=== PATIENT | female | born 1980 | race Caucasian/White ===

== ENCOUNTER 2018-10-11 23:00 | Inpatient (IN) ==
[2018-10-11] MEDS ORDERED: OXYTOCIN 30 UNITS/500 ML BAG IV PRN (23:38)
--- NOTE | 2018-10-11 23:46 | History & Physical Report ---
Date of Service October 11, 2018 Assessment & Plan (1) Uterine contractions at greater than 20 weeks of gestation: 38 yo at 39 wks, presenting with ctxs, in labor, GBS negative VSS Afebrile FHR reassuring Plan to admit, monitor, labs, epidural for pain when she desires Anticipate History of Present Illness Chief Complaint: contractions Primary Care Provider: NO PCP Patient is a 38 yo at 39 wks, feeling ctxs for the last 4 hours, getting closer and more painful No LOF/VB +FM She denies medical problems Problems for this 1) AMA 2) h/o macrosomia, 11 lb baby, in 2014, no complications 3) Rh negative 4) Class II Obesity This baby's EFW was 8 lb 7 oz on 10/06 Desires vaginal Allergies Allergy/AdvReac Type Severity Reaction Status Date / Time No Known Allergies Allergy Verified 08/30/14 07:46 Home Medications Home Medications Medication Instructions Recorded Confirmed Type PNV cmb#95-ferrous fumarate-FA 1 tab PO DAILY 10/11/18 10/11/18 History [] Patient History Social History Communication Ability: Effective Beliefs That Will Affect Care: None marital status: Single Current Living Situation: Family Other Information That Helps Us Care for You: No Feels Safe at Home: Yes Safety Concerns: Feels Safe At This Time Smoking Status: Never smoker Hx Alcohol Use: No Hx Substance Use: No OB History in 2005, 7 lb 2 oz 2014, 11 Lb 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
[2018-10-12 00:17] LABS: Hematocrit (blood only) 35.7 % (37-47); Hemoglobin 12.3 g/dL (12.0-16.0); Mean Corpuscular Volume 88.4 fL (80-100); Mean Platelet Volume 10.6 fL (7.4-10.4); Platelet Count 221 K/uL (130-400); RDW Coefficient of Variation 12.8 % (11.5-14.5); RDW Standard Deviation 41.4 fL (36.4-46.3); Red Blood Count 4.04 M/uL (4.2-5.4); White Blood Count 9.04 K/uL (4.8-10.8)
[2018-10-12 00:21] LABS: Mean Corpuscular Hgb Conc 34.5 g/dL (32-36)
[2018-10-12] MEDS ORDERED: BUPIVACAINE 0.25% 30 ML VIAL ONE (02:24)
[2018-10-12] MEDS ORDERED: ePHEDrine sulfate 50 MG/ML AMP ONE (02:24)
[2018-10-12] MEDS ORDERED: fentaNYL 2MCG/ML ROPIV 1.25MG/ML 100 ML BAG EPI ONE (02:25)
[2018-10-12] MEDS ORDERED: fentaNYL citrate 100 MCG/2 ML VIAL ONE (02:25)
--- NOTE | 2018-10-12 02:44 | Anesthesiology Consultation ---
Date of Service October 12, 2018 Assessment & Plan Chart Review Chart Review: Patient NOT seen in Pre Admission Testing and Acceptable Risk for Labor Epidural Consults Requested none ASA ASA2 Proposed Anesthesia Anesthesia Type: Labor Epidural and CSE Risk / Benefits Reviewed With: PT / POA / Parent / Guardian, Accepts Plan and Informed Consent Obtained History Height/Weight Height: 5 ft 7 in Weight: 108.862 kg Allergies Allergy/AdvReac Type Severity Reaction Status Date / Time No Known Allergies Allergy Verified 10/11/18 23:56 Medications Home Medications Medication Instructions Recorded Confirmed Last Taken PNV cmb#95-ferrous fumarate-FA 1 tab PO DAILY 10/11/18 10/11/18 10/11/18 08:00 [] Active Medications Generic Name Dose Route Start Last Admin Trade Name Freq PRN Reason Stop Dose Admin Lactated Ringer's 1,000 mls @ 150 mls/hr 10/11/18 23:38 10/12/18 00:00 Lr IV 10/13/18 23:37 150 mls/hr .[id number] PRN Administration L&D Protocol Protocol NPO Date Last Intake of Fluids: 10/11/18 Time Last Intake of Fluids: 22:45 Date Last Intake of Solids: 10/11/18 Time Last Intake of Solids: 20:30 Exercise / Class Metabolic Activity II 4-5 Yardwork/Stairs/Walk up hill Past Anesthesia History No Hx of Anesthesia Complications and No Family Hx of Anesthesia Complications History of PONV No Hx of PONV Social History Smoking Status: Never smoker Hx Alcohol Use: No Hx Substance Use: No Review of Systems no chest pain or sob Physical Exam Vital Signs Last Vital Signs Temp 37.0 C 10/12/18 01:00 Pulse 78 10/12/18 02:39 Resp 18 10/11/18 23:17 BP 122/78 10/11/18 23:12 Pulse Ox 97 10/12/18 02:39 ENMT Mouth: no TMJ abnormality Thyromental Distance: > or= 3.5 Finger Breadths Mallampati Class: II Neck normal visual inspection Respiratory normal respiratory effort Auscultation: lungs clear to auscultation bilaterally Cardiovascular Rate/Rhythm: regular rate and regular rhythm Musculoskeletal Spine: normal cervical ROM Neurologic moves all extremities Psychiatric Orientation: alert and oriented x 3 Testing Other Testing plt 221
[2018-10-12] MEDS ORDERED: fentaNYL 2MCG/ML ROPIV 1.25MG/ML 100 ML BAG EPI PRN (03:04)
[2018-10-12] MEDS ORDERED: NALBUPHINE HCL INJ 10 MG/ML AMP IV PRN (03:04)
[2018-10-12] MEDS ORDERED: ePHEDrine sulfate 50 MG/ML AMP IV PRN (03:04)
[2018-10-12] MEDS ORDERED: NALOXONE HCL 1 MG in SODIUM CHLORIDE 0.9% 1000ML 1,000 ML IV PRN (03:04)
[2018-10-12] MEDS ORDERED: DiphenhydrAMINE HCL 50 MG/ML VIAL IV PRN (03:04)
[2018-10-12] MEDS ORDERED: ONDANSETRON INJ 2 MG/ML 2 ML VIAL IV PRN (03:04)
[2018-10-12] MEDS ORDERED: NALOXONE HCL 0.4 MG/1 ML VIAL/CARP IV PRN (03:04)
[2018-10-12] MEDS: LACTATED RINGER'S 1,000 ML IV PRN ×2 (04:37)
[2018-10-12] MEDS ORDERED: HYDROCORTISONE ACETATE 25 MG SUPP PR PRN (07:49)
[2018-10-12] MEDS ORDERED: DIPHTHERIA/TETANUS/PERTUSSIS 0.5 ML SYR/VIAL IM ONE (07:49)
[2018-10-12] MEDS ORDERED: ACETAMINOPHEN 325 MG TAB PO PRN (07:49)
[2018-10-12] MEDS ORDERED: BENZOCAINE 20% AER SPR 82.5 GM CAN EXT PRN (07:49)
[2018-10-12] MEDS ORDERED: OXYTOCIN 30 UNITS/500 ML BAG IV PRN (07:49)
[2018-10-12] MEDS ORDERED: miSOPROStol 200 MCG TAB PR ONE (07:49)
[2018-10-12] MEDS ORDERED: SUPERCREAM 0.870% 15 GM JAR EXT PRN (07:49)
[2018-10-12] MEDS ORDERED: BISACODYL 10 MG SUPP PR PRN (07:49)
[2018-10-12] MEDS ORDERED: miSOPROStol 200 MCG TAB ONE (07:56)
--- NOTE | 2018-10-12 08:19 | Anesthesia Procedure Note ---
Date of Service October 12, 2018 Anesthesia Post Epidural Note Vital Signs Vital Signs: Temp Pulse Resp BP Pulse Ox 10/12/18 08:09 90 111/57 L 10/12/18 07:54 83 111/54 L 10/12/18 07:39 76 133/57 L 10/12/18 07:24 102 H 148/64 H 10/12/18 06:59 76 98 10/12/18 06:55 80 123/70 10/12/18 06:54 82 99 10/12/18 06:51 37.1 C 18 10/12/18 06:49 80 98 10/12/18 06:44 77 96 10/12/18 06:39 82 106/58 L 96 10/12/18 06:34 78 97 10/12/18 06:29 78 97 10/12/18 06:24 82 118/61 96 10/12/18 06:19 83 97 10/12/18 06:14 76 96 10/12/18 06:09 83 97 10/12/18 06:04 94 H 95 10/12/18 05:59 77 96 10/12/18 05:54 80 92/53 L 97 10/12/18 05:49 75 97 10/12/18 05:44 76 96 10/12/18 05:39 83 96 10/12/18 05:38 82 91/55 L 10/12/18 05:34 86 95 10/12/18 05:29 87 98 10/12/18 05:27 78 94 10/12/18 05:24 75 16 89/50 L 95 10/12/18 05:19 83 95 10/12/18 05:18 86 94 10/12/18 05:14 75 95 10/12/18 05:11 73 94 10/12/18 05:10 75 97/55 L 10/12/18 05:09 75 95 10/12/18 05:05 79 94 10/12/18 05:04 80 96 10/12/18 04:59 90 95 10/12/18 04:58 77 94 10/12/18 04:54 104 H 95 10/12/18 04:53 102 H 97/54 L 10/12/18 04:52 81 94 10/12/18 04:49 82 94 10/12/18 04:46 76 93 10/12/18 04:44 101 H 94 10/12/18 04:40 76 94 10/12/18 04:39 80 97/54 L 94 10/12/18 04:35 84 94 10/12/18 04:34 82 95 10/12/18 04:29 91 H 96 10/12/18 04:25 94 H 94 10/12/18 04:24 90 18 93/50 L 94 10/12/18 04:20 103 H 94 10/12/18 04:19 102 H 95 10/12/18 04:15 18 10/12/18 04:14 91 H 95 10/12/18 04:09 95 H 94 10/12/18 04:08 89 97/54 L 10/12/18 04:06 96 H 94 10/12/18 04:04 76 94 10/12/18 04:00 93 H 94 10/12/18 03:59 91 H 95 10/12/18 03:54 83 96/53 L 95 10/12/18 03:51 83 94 10/12/18 03:49 79 95 10/12/18 03:45 89 94 10/12/18 03:44 77 95 10/12/18 03:39 78 97 10/12/18 03:38 75 108/60 93 10/12/18 03:34 78 95 10/12/18 03:32 94 H 94 10/12/18 03:29 79 95 10/12/18 03:24 81 95 10/12/18 03:23 76 112/60 10/12/18 03:19 91 H 95 10/12/18 03:14 79 96 10/12/18 03:10 18 10/12/18 03:09 93 H 96 10/12/18 03:08 93 H 113/63 10/12/18 03:06 86 110/63 10/12/18 03:05 18 10/12/18 03:04 99 H 105/59 L 96 10/12/18 03:02 93 H 119/64 10/12/18 03:00 86 111/69 10/12/18 02:59 96 H 98 10/12/18 02:58 91 H 117/68 10/12/18 02:54 89 99 10/12/18 02:49 37.1 C 108 H 98 10/12/18 02:44 85 97 10/12/18 02:39 78 97 10/12/18 02:34 90 99 10/12/18 02:32 80 94 10/12/18 02:29 82 96 10/12/18 02:24 81 98 10/12/18 01:00 37.0 C 10/11/18 23:17 37.0 C 18 10/11/18 23:12 93 H 122/78 Notes Mental Status: alert / awake / arousable and participated in evaluation Patient Amnestic to Procedure: No Nausea / Vomiting: adequately controlled Pain: adequately controlled Airway Patency, RR, SpO2: stable & adequate BP & HR: stable & adequate Hydration State: stable & adequate Neuraxial Anesthesia: was administered and sensory block is resolving Anesthetic Complications: no major complications apparent and Pt Satisfied with anesthetic care Epidural: Removed without complications and With tip intact
--- NOTE | 2018-10-12 08:42 | Delivery Summary ---
DATE OF OPERATION: 10/12/2018 TIME OF DELIVERY OF BABY: 07:32 a.m. TIME OF DELIVERY OF PLACENTA: 07:41 a.m. DETAILS OF DELIVERY: The patient was found to be fully dilated and desired to push. She pushed for about half an hour and delivered the head without difficulty. The shoulders were delivered with minimal traction. Baby was handed off to the mother where mouth and nose were suctioned. Cord was clamped x2 and cut. It was 3 vessel cord and cord blood was obtained. Vagina and perineum were checked for lacerations. There was only first-degree small laceration on the upper labial fusion. It was repaired with 3-0 Vicryl on SH needle. Excellent hemostasis was achieved. Rest of the vagina and perineum were intact. Placenta was found to be in the vagina, delivered spontaneous as intact and complete. Uterus was explored, found to be empty. Lower segment was cleared of all clots and debris. EBL was 300ml. The patient was started on IV oxytocin infusion and then 800 mcg Cytotec was placed rectally. Fundus was firm. The bleeding was minimal at that point. Mom and baby tolerated the procedure well. Sponge, lap, needle count was correct x2. It was a viable female , Apgars 7/9. Weight is 4226 gr. No complications happened and I was present during whole procedure. I attest to the content of the Intraoperative Record and any orders documented therein. Any exceptions are noted below. MTDD
[2018-10-12] MEDS: FERROUS SULFATE 325 MG TAB PO SCH (09:25)
[2018-10-12] MEDS: DOCUSATE SODIUM 100 MG CAP PO SCH ×2 (09:25→20:19)
[2018-10-12] MEDS: PRENATAL VITAMIN 1 TAB PO SCH (09:25)
[2018-10-12] MEDS: IBUPROFEN 600 MG TAB PO PRN ×2 (15:07→20:19)
[2018-10-13 06:39] LABS: Hematocrit (blood only) 29.9 % (37-47); Hemoglobin 10.5 g/dL (12.0-16.0); Mean Corpuscular Hgb Conc 35.1 g/dL (32-36); Mean Corpuscular Volume 88.5 fL (80-100); Mean Platelet Volume 10.4 fL (7.4-10.4); Platelet Count 170 K/uL (130-400); RDW Standard Deviation 41.7 fL (36.4-46.3); Red Blood Count 3.38 M/uL (4.2-5.4); White Blood Count 8.88 K/uL (4.8-10.8)
--- NOTE | 2018-10-13 06:58 | Obstetrical Progress Note ---
Date of Service October 13, 2018 Assessment & Plan (1) normal course: PPD #1 pt doing well no complaints wishes to be discharged today Subjective Ambulation: ambulating normally Voiding: no voiding problems Passing Gas:: Yes Diet Tolerance:: regular diet Lochia:: Small Feeding Type:: breast feeding Review of Systems All systems reviewed & are unremarkable except as noted in HPI & below Physical Exam Vital Signs (Past 24 Hours) Last Vital Signs Temp 36.4 C L 10/13/18 04:15 Pulse 81 10/13/18 04:15 Resp 18 10/13/18 04:15 BP 101/66 10/13/18 04:15 Pulse Ox 98 10/12/18 06:59 Constitutional WD/WN, vitals as above well developed and well nourished Eyes PERRL, conjunctivae normal, anicteric sclerae Neck trachea midline, no thyromegaly Respiratory normal respiratory effort, lungs clear to auscultation Auscultation: no crackles, no rales and no wheezes Cardiovascular RRR, no murmur, no edema Gastrointestinal (Abdomen) normal bowel sounds, soft, nontender, no hepatosplenomegaly Uterus is below umbilicus Musculoskeletal no cyanosis or clubbing, extremities motor strength 5/5 Skin no rashes, warm and dry Neurologic patellar DTR's 2+ bilat, sensation intact Psychiatric A+Ox3, euthymic affect Genitourinary normal external appearance
[2018-10-13] MEDS: DOCUSATE SODIUM 100 MG CAP PO SCH (08:48)
[2018-10-13] MEDS: FERROUS SULFATE 325 MG TAB PO SCH (08:48)
[2018-10-13] MEDS: PRENATAL VITAMIN 1 TAB PO SCH (08:48)
[2018-10-13] MEDS: IBUPROFEN 600 MG TAB PO PRN (15:39)
[2018-10-13] MEDS ORDERED: BISACODYL 5 MG TABEC PO SCH (20:00)
== END 2018-10-13 18:42 | disposition home or self-care (01) | DRG 807 ==
LOC: OPB 23:00 → 4S1 23:02 → 4S2 10-12 09:45